=== PATIENT | female | born 1960 | race Caucasian/White ===

== ENCOUNTER 2021-07-11 09:38 | Outpatient (CLI) | payer BC, SELFPAY ==
--- NOTE | ~2021-07-11 | DEXA_ITS ---
Bone Density Report Name: MOHIT BYERS Age: 61 Sex: Female Ethnicity: White Date of : 1960 Indication: postmenopausal; height loss; Referring Provider: Nithya Flores Study: Bone densitometry was performed. Exam Date: July 11, 2021 Accession number: [id number] Bone Density: Region BMD T-score Z-score Classification AP Spine (L1-L4) 0.972 -0.7 1.0 Normal Femoral Neck (Left) 0.760 -0.8 0.6 Normal Total Hip (Left) 0.833 -0.9 0.2 Normal Total Hip Bilateral Avg 0.832 -0.9 0.2 Normal Femoral Neck (Right) 0.730 -1.1 0.4 Osteopenia Total Hip (Right) 0.830 -0.9 0.2 Normal World Health Organization criteria for BMD impression classify patients as: Normal (T-score at or above -1.0), Osteopenia (T-score between -1.0 and -2.5), or Osteoporosis (T-score at or below -2.5). 10-year Fracture Risk(1): Major Osteoporotic Fracture 7.7% Hip Fracture 0.5% Reported Risk Factors: [place] (), Neck BMD=0.730, BMI=28.6 (1) FRAX(R) Version 3.08. Fracture probability calculated for an untreated patient. Fracture probability may be lower if the patient has received treatment. Clinical Information Provided by Patient: Patient maximum height was 65 Menopause Age: 56 Does not regularly consume dairy products Drinks caffeinated beverages Onset of menses at age 11 Number of children 3 Impression: The patient has low bone mass, based on the Right Femoral Neck T-score. The patient has an estimated ten-year risk of hip fracture of 0.5% and an estimated ten-year risk of major fracture of 7.7%, based on the WHO FRAX algorithm. Discussion: BONE DENSITY IS LOW AT ONE OR MORE SKELETAL SITES. This patient's lowest T-score is low at one or more skeletal sites. It meets the World Health Organization's (WHO) criteria for ?low bone mass? (T-score between -1.0 and -2.5). The patient's 10-year risk of fracture as calculated by FRAX is less than the threshold where pharmacological therapy is recommended by the National Osteoporosis Foundation (NOF). However, all treatment decisions require clinical judgment and consideration of individual patient factors, including patient preferences, comorbidities, previous drug use, risk factors not captured in the FRAX model (e.g., frailty, falls, vitamin D deficiency, increased bone turnover, interval significant decline in bone density) and possible under or overestimation of fracture risk by FRAX. The patient should follow a healthful lifestyle (good nutrition with adequate calcium and vitamin D, and appropriate weight-bearing exercise). Follow-Up: Consider repeating this study in 2 to 3 years to reassess this patient's status, or sooner if there is some new clinical indication. Reported by: [facility] on 07/11/2021 10:37:00 AM. Rev
--- NOTE | ~2021-07-11 | MM_ITS ---
EXAMINATION: MM screening [facility] BI w jessie HISTORY: Screening mammogram TECHNIQUE: Craniocaudal and mediolateral oblique 3-D tomosynthesis images were obtained and synthetic 2-D images were generated. CAD analysis was submitted and interpreted. COMPARISON: 11/06/2016, 10/05/2015, 03/15/2014 BREAST PARENCHYMAL COMPOSITION: The breasts are heterogeneously dense, which may obscure small masses . FINDINGS: There is no evidence of suspicious mass, calcification, or architectural distortion to sugg est malignancy in either breast. There has been no suspicious interval change. IMPRESSION: 1. No mammographic evidence of malignancy. 2. Recommend routine screening mammography in one year. BI-RADS Category 1: Negative Reviewed, dictated and finalized at location A. CASTER
== END 2021-07-11 09:39 | disposition home or self-care (01) ==
LOC: ANHIMG 09:40
PROVIDERS: PCP Family Medicine; Visit Provider Student in an Organized Health Care Education/Training Program
DX: Z12.31 Encounter for screening mammogram for malignant neoplasm of breast (principal); Z78.0 Asymptomatic menopausal state; M85.851 Other specified disorders of bone density and structure, right thigh
CPT/HCPCS: 77063; 77067; 77080

== ENCOUNTER 2021-08-29 00:45 | Day surgery (SDC) | payer BC, SELFPAY ==
[2021-07-06 13:11] VITALS: BMI 27.6
[2021-08-23 14:36] VITALS: BMI 27.6
[2021-08-29 07:17] VITALS: BP 126/78; PULSE 78; RESP 16; TEMP 37.2; O2SAT 97
[2021-08-29] MEDS: LACTATED RINGERS 1,000 ML 150 ML IV CONT (07:32)
--- NOTE | 2021-08-29 07:58 | WPDANESEPPF ---
Anes - Initial Pre Proc Eval Procedure: Operation Date: 08/29/21 08:30 Proposed Procedures p Screening Colonoscopy - Gage Kruse MD Date/Time: 08/29/21 07:58 Surgeon: Gage Kruse MD Pre Op Diagnosis: neoplasm screening Patient Data Age: 61 Gender: F Height: 1.63 m Weight: 74.3 kg Last Vital Signs Temp 37.2 C 08/29/21 07:17 Pulse 78 08/29/21 07:17 Resp 16 08/29/21 07:17 BP 126/78 08/29/21 07:17 Pulse Ox 97 08/29/21 07:17 Allergies Allergy/AdvReac Type Severity Reaction Status Date / Time lactase Allergy Unknown Other Verified 08/29/21 07:16 Home Medications Medication Instructions Recorded Confirmed Type ibuprofen 200 mg capsule 200 mg PO Q6H PRN 05/10/21 08/23/21 History multivitamin 1 tablet PO DAILY 05/10/21 08/23/21 History pseudoephedrine HCl 240 mg 240 mg PO DAILY PRN 05/10/21 08/23/21 History tablet,extended release 24 hr venlafaxine 75 mg capsule,extended 75 mg PO DAILY #90 cap 06/27/21 08/23/21 Rx release 24 hr calcium carbonate-vitamin D3 [All 2 tablet PO DAILY 08/23/21 08/23/21 History Day Calcium] Patient hx anesthesia problems: none Family hx anesthesia problems: none Results Review: All pre-operative results and documents have been reviewed as part of the pre-operative evaluation. [facility] Past Medical History Medical History Arthritis Tesfaye's disease Headache Seasonal allergies Surgical History Surgical History History of tonsillectomy Previous section x 3 [place] teeth removed Family History Family History Sibling Family history of thyroid disease Family history of obesity Family history of alcoholism Heart disease Mother Family history of alcoholism Family history of primary malignant neoplasm of liver, Onset Age: 63 Depression Father Family history of Alzheimer's disease Grandparent Family history of malignant neoplasm of breast, Onset Age: 65 Social History Social History Smoking status: Former smoker Tobacco type: cigarettes Second hand tobacco smoke exposure: No Smoking end date: 07/08/80 Alcohol intake: current Drinks per week: 2 Substance use: never Substance use type: does not use Living arrangements: with roommate(s) Spiritual care concerns: No Anes - Eval Final PreProcedure Day of Procedure 08/29/21 07:58 Patient weight: overweight Heart: regular rate and rhythm Lungs: clear to auscultation Airway: Mallampati scale class II Neurological: alert and oriented Last oral intake: >/= 8 hours ASA classification: II Emergent: no Anesthetic plan: proceed Anesthesia type and monitoring: general GIVS and standard monitoring Results Review: All pre-operative results and documents have been reviewed as part of the pre-operative evaluation. Informed Consent: The patient's anesthetic plan and its attendant risks and benefits were discussed with the patient/family/POA. Questions were solicited and answers provided to the satisfaction of the patient/family/POA.
--- NOTE | 2021-08-29 08:37 | PM.HPGS ---
History of Present Illness History of Present Illness Consent: Risks, benefits, and alternatives have been discussed and questions answered. Patient agrees to proceed with procedure. Chief complaint: neoplasm screening Narrative: Brandi Sotelo is a 61 year old female here for screening colonoscopy, had one in late 40's Review of Systems Constitutional: Constitutional: Denies headache(s) and Denies weakness Eyes: Eyes: Denies blurry vision ENT: Reports Normal hearing present, Denies headache(s) and Denies neck pain Cardiovascular: Cardiovascular: Denies chest pain and Denies dyspnea Respiratory: Respiratory: Denies dyspnea Gastrointestinal: Gastrointestinal: Reports no additional gastrointestinal complaints Genitourinary: Genitourinary: Denies dysuria Musculoskeletal: Musculoskeletal: Denies neck pain Integumentary/Breasts: Skin/Breast: Denies dry skin Neurologic: Reports Normal hearing present, Denies headache(s) and Denies weakness Psychiatric: Psychiatric: Denies anxiety Endocrine: Endocrine: Denies change in body appearance Hematologic/Lymphatic: Hematologic/Lymphatic: Denies easy bleeding Allergic/Immunologic: Allergic/Immunologic: Denies urticaria PMFSH Past Medical History Medical History (Updated 08/29/21 @ 08:39 by Gage Kruse MD) Arthritis Colon cancer screening Tesfaye's disease Headache Seasonal allergies Surgical History Surgical History History of tonsillectomy Previous section x 3 [place] teeth removed Family History Family History Sibling Family history of thyroid disease Family history of obesity Family history of alcoholism Heart disease Mother Family history of alcoholism Family history of primary malignant neoplasm of liver, Onset Age: 63 Depression Father Family history of Alzheimer's disease Grandparent Family history of malignant neoplasm of breast, Onset Age: 65 Social History Social History Smoking status: Former smoker Tobacco type: cigarettes Second hand tobacco smoke exposure: No Smoking end date: 07/08/80 Alcohol intake: current Drinks per week: 2 Substance use: never Substance use type: does not use Living arrangements: with roommate(s) Spiritual care concerns: No Meds Home Medications and Allergies Home Medications Medication Instructions Recorded Confirmed Type ibuprofen 200 mg capsule 200 mg PO Q6H PRN 05/10/21 08/23/21 History multivitamin 1 tablet PO DAILY 05/10/21 08/23/21 History pseudoephedrine HCl 240 mg 240 mg PO DAILY PRN 05/10/21 08/23/21 History tablet,extended release 24 hr venlafaxine 75 mg capsule,extended 75 mg PO DAILY #90 cap 06/27/21 08/23/21 Rx release 24 hr calcium carbonate-vitamin D3 [All 2 tablet PO DAILY 08/23/21 08/23/21 History Day Calcium] Allergies Allergy/AdvReac Type Severity Reaction Status Date / Time lactase Allergy Unknown Other Verified 08/29/21 07:16 Vital Signs Vital Signs - 24 hr 08/29/21 07:17 Temperature 99 F Pulse Rate 78 Respiratory Rate 16 Blood Pressure 126/78 Pulse Oximetry 97 Exam Const: General: comfortable and no acute distress HENMT: General nose exam: Normal nares present Eyes: General: appearance normal, both eyes and all related structures Neck: Neck: no JVD Resp: Auscultation: clear to auscultation bilaterally Cardio: Rate: regular rate Rhythm: regular rhythm GI: Inspection: non-distended GI Palp: Yes Soft to palpation Skin: General skin exam: normal color Neuro: General: gait normal Speech: normal speech Extrem: General: normal to inspection Psych: Mental Status: mental status grossly normal Assessment and Plan Assessment and plan (1) Colon cancer screening: Code(s): Z12.11 - Encounter for s
[2021-08-29 09:01] VITALS: BP 108/69; PULSE 62; RESP 20; O2SAT 92
[2021-08-29 09:11] VITALS: BP 94/65; PULSE 73; RESP 20; O2SAT 97
[2021-08-29 09:21] VITALS: BP 99/67; PULSE 65; RESP 15; O2SAT 100
[2021-08-29 09:31] VITALS: BP 103/68; PULSE 67; RESP 23; O2SAT 100
== END 2021-08-29 09:39 | disposition home or self-care (01) ==
PROVIDERS: PCP Family Medicine; Visit Provider Internal Medicine Gastroenterology
PROC: 0DJD8ZZ Inspection of Lower Intestinal Tract, Via Natural or Artificial Opening Endoscopic (ICD-10-PCS; CPT 45378; principal; 2021-08-29 08:30)
DX: Z12.11 Encounter for screening for malignant neoplasm of colon (principal); D12.3 Benign neoplasm of transverse colon; K57.30 Diverticulosis of large intestine without perforation or abscess without bleeding; K64.8 Other hemorrhoids; E06.3 Autoimmune thyroiditis; Z87.891 Personal history of nicotine dependence
CPT/HCPCS: 45380; 88305; J2704; J7120

== ENCOUNTER → 2022-06-18 10:11 | Outpatient (CLI) | payer BC, SELFPAY ==
--- NOTE | ~2022-06-18 | US_ITS ---
Pelvic ultrasound. Clinical History: Unspecified menopausal/perimenopausal disorder, bloating Technique: Realtime transvaginal scanning of the pelvis was performed. Findings: The uterus is anteverted. The endometrial stripe has a thickness of 4 mm. No focal mass is identified. Neither ovary visualized. No adnexal mass seen. There is no evidence of free fluid in the cul de sac. Impression: No significant abnormality seen. Neither ovary visualized. Reviewed, dictated and finalized at location . TAL EVALUATOR Impression: No significant abnormality seen. Neither ovary visualized.
== END ==
PROVIDERS: PCP Internal Medicine; Visit Provider Obstetrics & Gynecology Gynecology
DX: N95.9 Unspecified menopausal and perimenopausal disorder (principal); R14.0 Abdominal distension (gaseous)
CPT/HCPCS: 76830

== ENCOUNTER → 2022-08-28 15:45 | Outpatient (CLI) | payer BC, SELFPAY ==
--- NOTE | ~2022-08-28 | MM_ITS ---
EXAMINATION: MM screening [facility] BI w jessie HISTORY: Screening mammogram TECHNIQUE: Craniocaudal and mediolateral oblique 3-D tomosynthesis images were obtained and synthetic 2-D images were generated. CAD analysis was submitted and interpreted. COMPARISON: 07/2021, 11/06/2016, 10/05/2015 and lateral screening mammogram examinations BREAST PARENCHYMAL COMPOSITION: The breasts are heterogeneously dense, which may obscure small masses . FINDINGS: There is no evidence of suspicious mass, calcification, or architectural distortion to sugg est malignancy in either breast. There has been no suspicious interval change. IMPRESSION: 1. No mammographic evidence of malignancy. 2. Recommend routine screening mammography in one year. BI-RADS Category 1: Negative Reviewed, dictated and finalized at location A. 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
== END ==
PROVIDERS: PCP Student in an Organized Health Care Education/Training Program; Visit Provider Student in an Organized Health Care Education/Training Program
DX: Z12.31 Encounter for screening mammogram for malignant neoplasm of breast (principal)
CPT/HCPCS: 77063; 77067